=== PATIENT | male | born 1980 | race Caucasian/White ===

== ENCOUNTER 2023-12-04 15:27 | Outpatient (CLI) | payer OTHER, SELFPAY | END 2023-12-04 15:28 | disposition home or self-care (01) | PROVIDERS: Visit Provider Family Medicine | DX: Z13.220 Encounter for screening for lipoid disorders (principal); I10 Essential (primary) hypertension; F41.1 Generalized anxiety disorder | CPT/HCPCS: 80053; 80061; 84443 ==

== ENCOUNTER 2024-01-01 19:38 | Outpatient (CLI) | payer OTHER, SELFPAY ==
--- NOTE | 2024-01-28 12:07 | W.PM.SLEEP ---
Sleep Study Details Details Interpreting Provider: Abdiel Date of Sleep Study: 01/01/24 Sleep Study Details: STUDY TYPE:? Home unattended ? BMI:? 38.4 ORDERING PROVIDER:? Aj INDICATION:? Concerns about sleep apnea ? SLEEP SUMMARY:? 456.5 minutes monitored RESPIRATORY SUMMARY:? AHI 20.1, supine 29.8, nonsupine 8.3 Low oxygen 84 2.4% of study oxygen less than 90% Snoring 93% PERIODIC LIMB MOVEMENTS OF SLEEP:? Not record CARDIAC:? Range 49-111, mean 67.3 IMPRESSION:? Moderate obstructive sleep apnea with supine position dependency RECOMMENDATION: Treatment options include weight loss, CPAP AutoSet, dental appliance.
== END 2024-01-01 19:39 | disposition home or self-care (01) ==
LOC: SLEEP 19:41
PROVIDERS: PCP Family Medicine; Visit Provider Family Medicine
DX: G47.33 Obstructive sleep apnea (adult) (pediatric) (principal)
CPT/HCPCS: 95806

== ENCOUNTER 2024-04-05 07:19 | Outpatient (CLI) | payer OTHER, SELFPAY ==
--- NOTE | 2024-04-05 08:34 | W.ANESCHARGE ---
Anesthesia Charges Start Date/Time Anesthesia Start Date: 04/05/24 Anesthesia Start Time: 08:07 Stop Date/Time Anesthesia Stop Date: 04/05/24 Anesthesia Stop Time: 09:24
--- NOTE | 2024-04-05 09:29 | W.ANESCHARGE ---
Anesthesia Charges Start Date/Time Anesthesia Start Date: 04/05/24 Anesthesia Start Time: 08:07 Stop Date/Time Anesthesia Stop Date: 04/05/24 Anesthesia Stop Time: 09:24
== END 2024-04-05 07:20 | disposition home or self-care (01) ==
LOC: OP CLINIC 07:20
PROVIDERS: PCP Family Medicine; Visit Provider Surgery
DX: Z12.11 Encounter for screening for malignant neoplasm of colon (principal); K63.5 Polyp of colon
CPT/HCPCS: 00811; 45381; 45385; 88305; J2704

== ENCOUNTER 2024-10-18 11:55 | Outpatient (CLI) | payer OTHER, SELFPAY | END 2024-10-18 11:56 | disposition home or self-care (01) | LOC: NFLDREF 11:57 | PROVIDERS: PCP Family Medicine; Visit Provider Family Medicine | DX: R30.0 Dysuria (principal); I10 Essential (primary) hypertension | CPT/HCPCS: 80053; 87086 ==

== ENCOUNTER 2025-04-06 08:40 | Outpatient (CLI) | payer OTHER, SELFPAY | END 2025-04-06 08:41 | disposition home or self-care (01) | LOC: NFLDREF 04-08 15:59 | PROVIDERS: PCP Family Medicine; Referring Provider Family Medicine; Visit Provider Family Medicine | DX: E78.5 Hyperlipidemia, unspecified (principal); I10 Essential (primary) hypertension | CPT/HCPCS: 80053; 80061 ==

== ENCOUNTER 2025-04-07 08:33 | Outpatient (CLI) | payer OTHER, SELFPAY ==
--- NOTE | 2025-04-07 09:42 | P.ANES_ITS ---
Anesthesia Charges Start Date/Time Anesthesia Start Date: 04/07/25 Anesthesia Start Time: 09:19 Stop Date/Time Anesthesia Stop Date: 04/07/25 Anesthesia Stop Time: 09:39 Coding CPT Codes CPT Codes: ANES LWR INTST NDSC NOS - [id number] ([id number]) P3 - PATIENT W/SEVERE SYS DISEASE, QK - ENVIRONMENTAL MARKETER 2-4 CNCRNT ANES PROC, P6 - BRAIN- PT ORGANS REMOVED
--- NOTE | 2025-04-07 09:42 | W.ANESCHARGE ---
Anesthesia Charges Start Date/Time Anesthesia Start Date: 04/07/25 Anesthesia Start Time: 09:19 Stop Date/Time Anesthesia Stop Date: 04/07/25 Anesthesia Stop Time: 09:39 Coding CPT Codes CPT Codes: ANES LWR INTST NDSC NOS - 79908 ([id number]) P3 - PATIENT W/SEVERE SYS DISEASE, QK - TRUCKLOAD OWNER OPERATOR 2-4 CNCRNT ANES PROC, P6 - BRAIN- PT ORGANS REMOVED
--- NOTE | 2025-04-07 09:43 | P.ANES_ITS ---
Anesthesia Charges Start Date/Time Anesthesia Start Date: 04/07/25 Anesthesia Start Time: 09:19 Stop Date/Time Anesthesia Stop Date: 04/07/25 Anesthesia Stop Time: 09:39 Coding CPT Codes CPT Codes: ANES LWR INTST NDSC NOS - [id number] ([id number]) QK - YELLOW PAGES SPACE SALESPERSON 2-4 CNCRNT ANES PROC, QX - AIRCRAFT ENGINE MECHANIC OVERHAUL SVC W/ MED DIRECTION, P3 - PATIENT W/SEVERE SYS DISEASE
--- NOTE | 2025-04-07 09:43 | W.ANESCHARGE ---
Anesthesia Charges Start Date/Time Anesthesia Start Date: 04/07/25 Anesthesia Start Time: 09:19 Stop Date/Time Anesthesia Stop Date: 04/07/25 Anesthesia Stop Time: 09:39 Coding CPT Codes CPT Codes: ANES LWR INTST NDSC NOS - [id number] ([id number]) QK - NUCLEAR REACTOR OPERATOR 2-4 CNCRNT ANES PROC, QX - WOOL HANKER SVC W/ MED DIRECTION, P3 - PATIENT W/SEVERE SYS DISEASE
--- OUTSIDE RECORDS SUMMARY | 2025-04-08 00:52 | XMS_ITS | Clinical Summary ---
Author Organization [facility] counts include 234 beds at the [facility] Address [address] [place] [address] [address] [place] [address] Care Team Providers Care Flex O Writer Operator Name Role Phone Provider, No Attributed RESOURCE Unavailable Unavailable Allergies No known active allergies Medications naproxen (NAPROSYN) 500 mg tabletIndication s:Left sided abdominal pain,Right flank pain Take 1 tablet (500 mg) by mouth Every 12 hours as needed for moderate pain 30 tablet 1 7 Active hydrOXYzine pamoate (VISTARIL) 50 mg capsuleIndicatio ns:Insomnia, unspecified type Take 1 capsule (50 mg) by mouth at bedtime as needed for insomnia 18 capsule 12/10/2023 8:11 PM SKI LIFT MECHANIC 4 Active traZODone (DESYREL) 50 mg tabletIndication s:Insomnia, unspecified type Take 1 tablet (50 mg) by mouth at bedtime as needed for insomnia 14 tablet 12/10/2023 8:11 PM SKI LIFT MECHANIC 4 Active Social History Tobacco Use Types Packs/Day Years Used Date Smoking Tobacco: Former Smokeless Tobacco: Never Alcohol Use Standard Drinks/Week Comments Yes 0 (1 standard drink = 0.6 oz pur e alcohol) Sex and Gender Information Value Date Recorded Sex Assigned at Not on file Legal Sex Male 10:52 PM CDT Gender Identity Not on file Sexual Orientation Not on file Last Filed Vital Signs Vital Sign Reading Time Taken Comments Blood Pressure 148/77 12/10/2023 7:58 PM SKI LIFT MECHANIC Pulse 72 12/10/2023 7:58 PM SKI LIFT MECHANIC Temperature 36.1 C (97 F) 12/10/2023 6:33 PM SKI LIFT MECHANIC Respiratory Rate 16 12/10/2023 7:33 PM SKI LIFT MECHANIC Oxygen Saturation 97% 12/10/2023 6:33 PM SKI LIFT MECHANIC Inhaled Oxygen Concentration - - Weight 108.9 kg (240 lb) 12/10/2023 7:33 PM SKI LIFT MECHANIC Height 170.2 cm (5' 7) 12/10/2023 7:33 PM SKI LIFT MECHANIC Body Mass Index 37.59 12/10/2023 7:33 PM SKI LIFT MECHANIC Plan of Treatment Not on file Care Teams Flex O Writer Operator Relationship Specialty Start Date End Date Provider, No Attributed, RESOURCE [address] PCP - Attributed Provider 06/10/17
== END 2025-04-07 08:34 | disposition home or self-care (01) ==
LOC: OP CLINIC 08:34
PROVIDERS: PCP Family Medicine; Visit Provider Internal Medicine
DX: Z12.11 Encounter for screening for malignant neoplasm of colon (principal); Z86.0100 Personal history of colon polyps, unspecified; K57.30 Diverticulosis of large intestine without perforation or abscess without bleeding
CPT/HCPCS: 00811; 00812; 45380; J2704

== ENCOUNTER 2025-07-06 08:50 | Outpatient (CLI) | payer OTHER, SELFPAY | END 2025-07-06 08:51 | disposition home or self-care (01) | LOC: NFLDREF 07-16 03:34 | PROVIDERS: PCP Family Medicine; Referring Provider Family Medicine; Visit Provider Family Medicine | DX: E78.5 Hyperlipidemia, unspecified (principal) | CPT/HCPCS: 80053; 80061 ==